=== PATIENT | male | born 1945 ===

== ENCOUNTER 2017-06-02 16:37 | Observation (INO) | payer MEDICARE, OTHER ==
[2017-06-02 16:38] VITALS: BMI 22.8
--- NOTE | 2017-06-02 18:22 | C.PDOC ---
History Of Present Illness <Justin Carrasco - Last Filed: 06/02/17 18:35> <Jenelle Vasquez - Last Filed: 06/02/17 20:01> 72 y/o male presents to ED sent By PMD Dr. Ruiz for evaluation on low sodium. Patient was seen by PMD on Tuesday and had blood work, today was called for abnormal results. At Bedside Patient has results paper that show Sodium of 116 and Hemoglobin of 9.7. As per patient x2 weeks ago (05/22/17)he felt generalized weakness and collapsed onto floor but denies loc, head injury or any other associated symptoms at this time. (Justin Carrasco) History Per: Patient History/Exam Limitations: no limitations Onset/Duration Of Symptoms: Days Current Symptoms Are (Timing): Still Present <Justin Carrasco - Last Filed: 06/02/17 18:35> <Jenelle Vasquez - Last Filed: 06/02/17 20:01> Time Seen by Provider: 06/02/17 17:55 Chief Complaint (Nursing): Weakness/Neurological Deficit Past Medical History Reviewed: Historical Data, Nursing Documentation, Vital Signs - Medical History PMH: Asthma (OCCASSIONAL"COUGH"-INHALER PRN-LD=), HTN, Hypercholesterolemia Surgical History: No Surg Hx Family History: States: No Known Family Hx - Social History Hx Tobacco Use: No Hx Alcohol Use: No Hx Substance Use: No - Immunization History Hx Tetanus Toxoid Vaccination: No Hx Influenza Vaccination: No Hx Pneumococcal Vaccination: No <Justin Carrasco - Last Filed: 06/02/17 18:35> Vital Signs: Last Vital Signs Temp 98.2 F 06/02/17 16:58 Pulse 66 06/02/17 16:58 Resp 16 06/02/17 16:58 BP 143/67 06/02/17 16:58 Pulse Ox 99 06/02/17 18:41 - [facility] Procedures CORONAR ARTERIOGR-2 CATH (06/10/03) LEFT HEART CARDIAC CATH (06/10/03) LT HEART ANGIOCARDIOGRAM (06/10/03) Review Of Systems Except As Marked, All Systems Reviewed And Found Negative. Constitutional: Negative for: Fever, Chills Cardiovascular: Negative for: Chest Pain Gastrointestinal: Negative for: Nausea, Vomiting Neurological: Positive for: Weakness. Negative for: Numbness, Headache, Dizziness <Justin Carrasco - Last Filed: 06/02/17 18:35> Physical Exam - Physical Exam Appears: Non-toxic, No Acute Distress Skin: Warm, Dry, No Rash Head: Atraumatic Eye(s): bilateral: Normal Inspection Oral Mucosa: Moist Neck: Normal ROM, Supple Chest: Symmetrical Cardiovascular: Rhythm Regular, No Murmur Respiratory: Normal Breath Sounds, No Rales, No Rhonchi, No Wheezing Gastrointestinal/Abdominal: Soft, No Tenderness, No Guarding, No Rebound Extremity: Normal ROM, Capillary Refill (<2 seconds) Neurological/Psych: Oriented x3 <Justin Carrasco - Last Filed: 06/02/17 18:35> ED Course And Treatment O2 Sat by Pulse Oximetry: 99 (RA) Pulse Ox Interpretation: Normal <Justin Carrasco - Last Filed: 06/02/17 18:35> - Laboratory Results Result Diagrams: 06/02/17 19:23 06/02/17 19:23 <Crystal Vasquezdi - Last Filed: 06/02/17 20:01> Disposition <Justin Carrasco - Last Filed: 06/02/17 18:35> Discussed With DrJoanna: Davey Ruiz Comment: accepted the pt on his service and took over the care at 8PM Doctor Will See Patient In The: Hospital Counseled Patient/Family Regarding: Studies Performed, Diagnosis - Disposition Disposition Time: 19:00 - POA Present On Arrival: Poor Glycemic Control <Jenelle Vasquez - Last Filed: 06/02/17 20:01> - Disposition Disposition: HOSPITALIZED Condition: FAIR Forms: [employer] (Mauritian) - Clinical Impression Clinical Impression: Hyponatremia, Renal insufficiency - Scribe Statement The provider has reviewed the documentation as recorded by the Scribe <Justin Carrasco P - Last Filed: 06/02/17 18:35> <Jenelle Vasquez - Last Filed: 06/02/17 20:01> - Scribe Statement Catracho Zaragoza All medical record entries made by the Scribe were at my direction and personally dictated by me. I have reviewed the chart and agree that the record accurately reflects my personal performance of the history, physical exam, medical decision making, and the department course for this patient. I have also personally directed, reviewed, and agree with the discharge instructions and disposition. (Justin Carrasco) Decision To Admit <Justin Carrasco - Last Filed: 06/02/17 18:35> - Pt Status Changed To: Hospital Disposition Of: Observation - . Bed Request Type: Regular Admitting Physician: Davey Ruiz <Jenelle Vasquez - Last Filed: 06/02/17 20:01> - . Patient Diagnosis: Hyponatremia, Renal insufficiency
[2017-06-02 19:31] LABS: RBC URINE < 1 /hpf (0-3); URINE BILIRUBIN NEGATIVE (NEGATIVE); URINE BLOOD 1+ (NEGATIVE); URINE COLOR Colorless (YELLOW); URINE GLUCOSE (UA) 1+ mg/dL (Normal); URINE KETONE NEGATIVE (NEGATIVE); URINE LEUKOCYTE ESTERASE NEG Leu/uL (Negative); URINE PROTEIN 2+ mg/dL (NEGATIVE); URINE UROBILINOGEN NORMAL mg/dL (0.2-1.0); WBC URINE < 1 /hpf (0-5)
[2017-06-02 19:32] LABS: BASO % 0.3 % (0.0-2.0); EOS # 0.1 K/uL (0.0-0.7); EOS % 1.7 % (0.0-4.0); LYMPH # 1.4 K/uL (1.0-4.3); LYMPH % 20.4 % (20.0-40.0); MEAN CORPUSCULAR HEMOGLOBIN 29.8 pg (27.0-31.0); MEAN CORPUSCULAR HGB CONC 35.1 g/dL (33.0-37.0); MONO # 0.5 K/uL (0.0-0.8); MONO % 8.1 % (0.0-10.0); NRBC % 0.1 % (0.0-2.0); RED CELL DISTRIBUTION WIDTH 13.6 % (11.5-14.5); WHITE BLOOD COUNT 6.7 K/uL (4.8-10.8)
[2017-06-02 19:37] LABS: MEAN CELL VOLUME 84.8 fL (80.0-94.0)
[2017-06-02 19:41] LABS: POTASSIUM 3.9 mmol/L (3.6-5.2)
[2017-06-02 19:44] LABS: ALB/GLOB RATIO 1.6 (1.0-2.1); BILIRUBIN,TOTAL 0.5 mg/dL (0.2-1.3); TOTAL PROTEIN 6.5 g/dL (6.3-8.3)
[2017-06-02 19:45] LABS: CALCIUM 8.8 mg/dl (8.6-10.4)
[2017-06-02] MEDS: Sodium Chloride 0.9% 1,000 ML IV SCH (20:14)
[2017-06-03 01:30] VITALS: RESP 20
--- NOTE | 2017-06-03 07:44 | RAD ---
HISTORY: weak COMPARISON: Comparison is made to 07/03/2015 TECHNIQUE: Chest PA and lateral FINDINGS: LUNGS: No active pulmonary disease. PLEURA: No significant pleural effusion identified. No pneumothorax apparent. CARDIOVASCULAR: Normal. OSSEOUS STRUCTURES: No significant abnormalities. VISUALIZED UPPER ABDOMEN: Normal. OTHER FINDINGS: None. IMPRESSION: No active disease.
[2017-06-03 07:49] LABS: POTASSIUM 4.2 mmol/L (3.6-5.2)
--- NOTE | 2017-06-03 08:41 | CP.PCM.HP ---
History of Present Illness - History of Present Illness History of Present Illness: CC: Dizzy 72 ma;le with BPH, HTN, & NIDDM. Patient has dizziness and Na was noted 112. Patient felt slight better but has mild dizziness. He went to ER and was found still low Na. Pt was admitted. Present on Admission - Present on Admission Any Indicators Present on Admission: Yes History of DVT/PE: No History of Uncontrolled Diabetes: Yes Urinary Catheter: No Decubitus Ulcer Present: No Review of Systems - Review of Systems Systems not reviewed;Unavailable: Acuity of Condition - Constitutional Constitutional: Lethargy, Malaise, Weakness. absent: Chills, Daytime Sleepiness , Fever, Frequent Falls, Night Sweats - EENT Eyes: absent: Blurred Vision, Floaters, Irritation, Photophobia, Sees Flashes Nose/Mouth/Throat: absent: Nasal Congestion, Nasal Discharge, Post Nasal Drip, Hoarsness, Mouth Pain, Odynophagia, Tongue Swelling - Cardiovascular Cardiovascular: absent: Chest Pain, Diaphoresis, Irregular Heart Rhythm, Leg Edema, Palpitations, Pedal Edema, Syncope - Respiratory Respiratory: absent: Cough, Hemoptysis, Dyspnea on Exertion, Wheezing, Chest Congestion, Pain with Coughing - Gastrointestinal Gastrointestinal: absent: Abdominal Pain, Bloating, Early Satiety, Excessive Flatus, Loose Stools, Nausea, Vomiting - Genitourinary Genitourinary: Nocturia, Urinary Frequency. absent: Urinary Hesitance, Urinary Urgency - Musculoskeletal Musculoskeletal: absent: Abnormal Gait, Atrophy, Back Pain, Loss of Height, Muscle Weakness, Neck Pain - Integumentary Integumentary: absent: Rash, Skin Ulcer, Sores, Swelling Past Patient History - Past Medical History & Family History Past Medical History?: Yes - Past Social History Smoking Status: Never Smoked - CARDIAC Hx Hypercholesterolemia: Yes Hx Hypertension: Yes - PULMONARY Hx Asthma: Yes (OCCASSIONAL"COUGH"-INHALER PRN-LD=) - HEENT Hx HEENT Problems: Yes Hx Cataracts: Yes (BILAT. 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 IOL) - ANESTHESIA Hx Anesthesia: Yes Hx Anesthesia Reactions: No Hx Malignant Hyperthermia: No Meds Allergies/Adverse Reactions: Allergies Allergy/AdvReac Type Severity Reaction Status Date / Time No Known Allergies Allergy Verified 06/02/17 17:00 Physical Exam - Constitutional Appears: No Acute Distress - Eye Exam Eye Exam: Normal appearance Pupil Exam: absent: NORMAL ACCOMODATION - ENT Exam ENT Exam: Mucous Membranes Moist - Neck Exam Neck exam: Negative for: Full Rom, Lymphadenopathy - Respiratory Exam Respiratory Exam: Decreased Breath Sounds. absent: Rales, Rhonchi, Wheezes - Cardiovascular Exam Cardiovascular Exam: REGULAR RHYTHM, +S1, +S2, Systolic Murmur. absent: Diastolic murmur, Gallop, JVD - GI/Abdominal Exam GI & Abdominal Exam: Soft. absent: Tenderness - Extremities Exam Extremities exam: Positive for: full ROM, normal capillary refill. Negative for : calf tenderness, joint swelling, pedal edema Results - Vital Signs Recent Vital Signs: Last Vital Signs Temp 98 F 06/03/17 00:00 Pulse 60 06/03/17 00:00 Resp 20 06/03/17 00:00 BP 153/71 H 06/03/17 03:01 Pulse Ox 98 06/03/17 00:00 - Labs Result Diagrams: 06/02/17 19:23 06/03/17 06:57 Labs: Laboratory Results - last 24 hr 06/02/17 06/02/17 06/02/17 19:23 19:23 19:23 WBC 6.7 RBC 3.54 L Hgb 10.5 L D Hct 30.0 L MCV 84.8 D MCH 29.8 MCHC 35.1 RDW 13.6 Plt Count 188 MPV 8.0 Neut % (Auto) 69.5 Lymph % (Auto) 20.4 [place] % (Auto) 8.1 Eos % (Auto) 1.7 Baso % (Auto) 0.3 Neut # 4.7 Lymph # 1.4 Harlan # 0.5 Eos # 0.1 Baso # 0.0 Sodium 123 L Potassium 3.9 Chloride 88 L Carbon Dioxide 21 L Anion Gap 18 BUN 27 H Creatinine 1.8 H Est GFR ( Amer) 45 Est GFR (Non-Af Amer) 37 POC Glucose (mg/dL) Random Glucose 82 Serum Osmolality Calcium 8.8 Total Bilirubin 0.5 AST 24 ALT 35 Alkaline Phosphatase 106 Total Protein 6.5 Albumin 4.0 Globulin 2.5 Albumin/Globulin Ratio 1.6 Urine Color Colorless Urine Clarity Clear Urine pH 6.0 Ur Specific [place] 1.003 Urine Protein 2+ H Urine Glucose (UA) 1+ H Urine Ketones Negative Urine Blood 1+ H Urine Nitrate Negative Urine Bilirubin Negative Urine Urobilinogen Normal Ur Leukocyte Esterase Neg Urine WBC (Auto) < 1 Urine RBC (Auto) < 1 Urine Osmolality Ur Random Sodium 06/02/17 06/02/17 06/03/17 19:23 19:23 02:07 WBC RBC Hgb Hct MCV MCH MCHC RDW Plt Count MPV Neut % (Auto) Lymph % (Auto) [place] % (Auto) Eos % (Auto) Baso % (Auto) Neut # Lymph # Harlan # Eos # Baso # Sodium Potassium Chloride Carbon Dioxide Anion Gap BUN Creatinine Est GFR ( Amer) Est GFR (Non-Af Amer) POC Glucose (mg/dL) 198 H Random Glucose Serum Osmolality 268 L Calcium Total Bilirubin AST ALT Alkaline Phosphatase Total Protein Albumin Globulin Albumin/Globulin Ratio Urine Color Urine Clarity Urine pH Ur Specific [place] Urine Protein Urine Glucose (UA) Urine Ketones Urine Blood Urine Nitrate Urine Bilirubin Urine Urobilinogen Ur Leukocyte Esterase Urine WBC (Auto) Urine RBC (Auto) Urine Osmolality 149 L Ur Random Sodium 31 06/03/17 06/03/17 06:57 07:07 WBC RBC Hgb Hct MCV MCH MCHC RDW Plt Count MPV Neut % (Auto) Lymph % (Auto) [place] % (Auto) Eos % (Auto) Baso % (Auto) Neut # Lymph # [place] # Eos # Baso # Sodium 128 L Potassium 4.2 Chloride 92 L Carbon Dioxide 23 Anion Gap 17 BUN 26 H Creatinine 2.0 H Est GFR ( Amer) 40 Est GFR (Non-Af Amer) 33 POC Glucose (mg/dL) 217 H Random Glucose 206 H Serum Osmolality Calcium 9.0 Total Bilirubin AST ALT Alkaline Phosphatase Total Protein Albumin Globulin Albumin/Globulin Ratio Urine Color Urine Clarity Urine pH Ur Specific [place] Urine Protein Urine Glucose (UA) Urine Ketones Urine Blood Urine Nitrate Urine Bilirubin Urine Urobilinogen Ur Leukocyte Esterase Urine WBC (Auto) Urine RBC (Auto) Urine Osmolality Ur Random Sodium
[2017-06-03] MEDS ORDERED: Magnesium Hydroxide Susp 30 ml UD PO ONE (10:22)
[2017-06-03] MEDS: (Novolog) Insulin Aspart, Recombinant 100 u/ml 10 ml vial SC SCH ×3 (11:38→22:39)
--- NOTE | 2017-06-03 14:17 | CARD ---
APPROVED REPORT EKG Measurement Heart [id number] <Conclusion> Sinus bradycardia with 1st degree AV block Possible Inferior infarct, age undetermined Abnormal ECG
[2017-06-03] MEDS ORDERED: Nitroglycerin 2% Ointment Foilpak UD TOP ONE (16:00)
[2017-06-03] MEDS ORDERED: Insulin Detemir 100 units/ml Vial (Levemir) SC SCH (18:00)
[2017-06-03] MEDS: Sodium Chloride 0.9% 1,000 ML IV SCH (22:40)
[2017-06-04 08:08] LABS: CHLORIDE 91 mmol/L (98-107); POTASSIUM 4.4 mmol/L (3.6-5.2); SODIUM 129 mmol/L (132-148)
[2017-06-04 08:10] LABS: GFR AFRICAN-AMERICAN 38
[2017-06-04 08:11] LABS: BLOOD UREA NITROGEN 35 mg/dL (9-20); CARBON DIOXIDE 25 mmol/L (22-30); GLUCOSE,RANDOM 185 mg/dL (75-110)
[2017-06-04 08:12] LABS: CALCIUM 9.2 mg/dl (8.6-10.4)
[2017-06-04 08:26] LABS: PROSTATE SPECIFIC ANTIGEN < 0.064 ng/mL (0.00-4.0); THYROID STIMULATING HORMONE 1.45 mIU/L (0.46-4.68)
[2017-06-04] MEDS: (Novolog) Insulin Aspart, Recombinant 100 u/ml 10 ml vial SC SCH ×2 (08:31→12:25)
[2017-06-04 10:37] VITALS: TEMP 97.8
--- NOTE | 2017-06-04 14:53 | CP.PCM.DIS ---
Provider - Provider Date of Admission: 06/02/17 19:58 Attending physician: Davey Tapia MD 06-04-17 Primary care physician: DR. davey tapia Time Spent in preparation of Discharge (in minutes): 30 Diagnosis - Discharge Diagnosis (1) Uncontrolled diabetes mellitus Status: Acute Hospital Course - Lab Results Lab Results: Most Recent Lab Values WBC 6.7 K/uL (4.8-10.8) 06/02/17 19:23 RBC 3.54 Mil/uL (4.40-5.90) L 06/02/17 19:23 Hgb 10.5 g/dL (12.0-18.0) L D 06/02/17 19:23 Hct 30.0 % (35.0-51.0) L 06/02/17 19:23 MCV 84.8 fL (80.0-94.0) D 06/02/17 19:23 MCH 29.8 pg (27.0-31.0) 06/02/17 19:23 MCHC 35.1 g/dL (33.0-37.0) 06/02/17 19:23 RDW 13.6 % (11.5-14.5) 06/02/17 19:23 Plt Count 188 K/uL (130-400) 06/02/17 19:23 MPV 8.0 fL (7.2-11.7) 06/02/17 19:23 Neut % (Auto) 69.5 % (50.0-75.0) 06/02/17 19:23 Lymph % (Auto) 20.4 % (20.0-40.0) 06/02/17 19:23 [place] % (Auto) 8.1 % (0.0-10.0) 06/02/17 19:23 Eos % (Auto) 1.7 % (0.0-4.0) 06/02/17 19:23 Baso % (Auto) 0.3 % (0.0-2.0) 06/02/17 19:23 Neut # 4.7 K/uL (1.8-7.0) 06/02/17 19:23 Lymph # 1.4 K/uL (1.0-4.3) 06/02/17 19:23 Boyle # 0.5 K/uL (0.0-0.8) 06/02/17 19:23 Eos # 0.1 K/uL (0.0-0.7) 06/02/17 19:23 Baso # 0.0 K/uL (0.0-0.2) 06/02/17 19:23 Sodium 129 mmol/L (132-148) L 06/04/17 07:03 Potassium 4.4 mmol/L (3.6-5.2) 06/04/17 07:03 Chloride 91 mmol/L (98-107) L 06/04/17 07:03 Carbon Dioxide 25 mmol/L (22-30) 06/04/17 07:03 Anion Gap 18 (10-20) 06/04/17 07:03 BUN 35 mg/dL (9-20) H 06/04/17 07:03 Creatinine 2.1 MG/DL (0.8-1.5) H 06/04/17 07:03 Est GFR ( Amer) 38 06/04/17 07:03 Est GFR (Non-Af Amer) 31 06/04/17 07:03 POC Glucose (mg/dL) 311 mg/dL (65-110) H 06/04/17 11:04 Random Glucose 185 mg/dL (75-110) H 06/04/17 07:03 Serum Osmolality 268 mosm/kg (272-300) L 06/02/17 19:23 Calcium 9.2 mg/dl (8.6-10.4) 06/04/17 07:03 Total Bilirubin 0.5 mg/dL (0.2-1.3) 06/02/17 19:23 AST 24 U/L (17-59) 06/02/17 19:23 ALT 35 U/L (21-72) 06/02/17 19:23 Alkaline Phosphatase 106 U/L (38-126) 06/02/17 19:23 Total Protein 6.5 g/dL (6.3-8.3) 06/02/17 19:23 Albumin 4.0 g/dL (3.5-5.0) 06/02/17 19:23 Globulin 2.5 gm/dL (2.2-3.9) 06/02/17 19:23 Albumin/Globulin Ratio 1.6 (1.0-2.1) 06/02/17 19:23 Prostate Specific Ag < 0.064 ng/mL (0.00-4.0) 06/04/17 07:03 TSH 3rd Generation 1.45 mIU/L (0.46-4.68) 06/04/17 07:03 Urine Color Colorless (YELLOW) 06/02/17 19:23 Urine Clarity Clear (Clear) 06/02/17 19:23 Urine pH 6.0 (5.0-8.0) 06/02/17 19:23 Ur Specific [place] 1.003 (1.003-1.030) 06/02/17 19:23 Urine Protein 2+ mg/dL (NEGATIVE) H 06/02/17 19:23 Urine Glucose (UA) 1+ mg/dL (Normal) H 06/02/17 19:23 Urine Ketones Negative mg/dL (NEGATIVE) 06/02/17 19:23 Urine Blood 1+ (NEGATIVE) H 06/02/17 19:23 Urine Nitrate Negative (NEGATIVE) 06/02/17 19:23 Urine Bilirubin Negative (NEGATIVE) 06/02/17 19:23 Urine Urobilinogen Normal mg/dL (0.2-1.0) 06/02/17 19:23 Ur Leukocyte Esterase Neg [place]/uL (Negative) 06/02/17 19:23 Urine WBC (Auto) < 1 /hpf (0-5) 06/02/17 19:23 Urine RBC (Auto) < 1 /hpf (0-3) 06/02/17 19:23 Urine Osmolality 149 mosm/kg (300-1000) L 06/02/17 19:23 Ur Random Sodium 31 mmol/L 06/02/17 19:23 - Date & Time of H&P Date of H&P: 06/04/17 Time of H&P: 14:53 Discharge Exam - Head Exam Head Exam: NORMAL INSPECTION - Eye Exam Eye Exam: Normal appearance - ENT Exam ENT Exam: Normal Exam - Neck Exam Neck exam: Normal Inspection - Respiratory Exam Respiratory Exam: NORMAL BREATHING PATTERN - Cardiovascular Exam Cardiovascular Exam: REGULAR RHYTHM - GI/Abdominal Exam GI & Abdominal Exam: Soft - Rectal Exam Rectal Exam: Deferred - Extremities Exam Extremities exam: normal inspection - Neurological Exam Neurological exam: Alert Discharge Plan - Follow Up Plan Condition: FAIR Disposition: HOME/ ROUTINE Instructions: Renal Failure Diet (DC) Additional Instructions: f/u office after tuesday. Bring all medications
[2017-06-04 15:54] VITALS: BP 189/79
[2017-06-04 16:50] VITALS: PULSE 68; O2SAT 99
[2017-06-05] MEDS ORDERED: Influenza Virus Vaccine (Afluria Inactive dont use ) IM ONE (10:00)
[2017-06-06] MEDS ORDERED: Pneumococcal 23-Valent Vaccine IM ONE (10:00)
[2018-05-06] MEDS ORDERED: Influenza Vaccine 60 mcg/0.5 mL SYR (4YR UP) IM ONE (12:00)
== END 2017-06-04 16:22 | disposition home or self-care (01) ==
LOC: C.ER 16:37 → C.9E 19:58 → C.3T 22:07
PROVIDERS: ADMIT Internal Medicine; ATTEND Internal Medicine
DX: E87.1 Hypo-osmolality and hyponatremia (principal); I10 Essential (primary) hypertension; J45.909 Unspecified asthma, uncomplicated; N40.0 Benign prostatic hyperplasia without lower urinary tract symptoms; Z79.4 Long term (current) use of insulin; H91.90 Unspecified hearing loss, unspecified ear; N28.9 Disorder of kidney and ureter, unspecified; E11.9 Type 2 diabetes mellitus without complications
CPT/HCPCS: 36415; 71020; 80048; 80053; 81001; 82948; 83930; 83935; 84153; 84300; 84443; 85025; 93005; 97162; 99285; G0378; G8978; G8979; J1644; J1940; J7040

== ENCOUNTER 2017-12-16 12:06 | Emergency (ER) | payer OTHER, MEDICARE ==
[2017-12-16 12:08] VITALS: BMI 22.8
[2017-12-16 12:27] VITALS: BP 162/63; PULSE 73; RESP 16; TEMP 98.4; O2SAT 99
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
== END 2017-12-16 12:36 | disposition home or self-care (01) ==
LOC: C.ER 12:06
DX: Z04.1 Encounter for examination and observation following transport accident (principal)